=== PATIENT | female | born 1985 | race Caucasian/White ===

== ENCOUNTER 2017-05-20 10:04 | Outpatient (CLI) | payer OTHER ==
[~2017-05-20 10:04] MED LIST: INDO25CA PO; OMEP40CA37 PO
== END 2017-05-20 23:59 | disposition home or self-care (01) ==
LOC: LAB 10:04
PROVIDERS: ATTEND Specialist
DX: N92.5 Other specified irregular menstruation (principal); E11.9 Type 2 diabetes mellitus without complications; I25.2 Old myocardial infarction; Z86.73 Personal history of transient ischemic attack (TIA), and cerebral infarction without residual deficits
CPT/HCPCS: 36415; 84146; 84443

== ENCOUNTER 2018-01-12 12:56 | Outpatient (CLI) | payer OTHER, BC ==
[~2018-01-12 12:56] MED LIST changes: -INDO25CA PO; +INDO25CA18 PO
== END 2018-01-12 23:59 | disposition home or self-care (01) ==
LOC: VAS 12:56
PROVIDERS: ATTEND Internal Medicine Critical Care Medicine
DX: M79.661 Pain in right lower leg (principal); Z79.899 Other long term (current) drug therapy
CPT/HCPCS: 93971